=== PATIENT | male | born 1970 | race Caucasian/White ===

== ENCOUNTER 2018-03-06 23:38 | Emergency (ER) | payer OTHER | END 2018-03-07 01:28 | disposition home or self-care (01) | LOC: FTE 23:38 | DX: M25.571 Pain in right ankle and joints of right foot (principal) | CPT/HCPCS: 73610; 73610-RT; 99283-25 ==

== ENCOUNTER 2018-08-04 20:27 | Emergency (ER) | payer OTHER ==
[2018-08-04] MEDS: DIPHTH/TET/ACEL PERTUSS (ADULT) 0.5 ML VIAL IM* (22:01)
== END 2018-08-04 23:43 | disposition home or self-care (01) ==
LOC: FTE 20:27
DX: S61.012A Laceration without foreign body of left thumb without damage to nail, initial encounter (principal); F17.210 Nicotine dependence, cigarettes, uncomplicated; W25.XXXA Contact with sharp glass, initial encounter; Y92.9 Unspecified place or not applicable
CPT/HCPCS: 12001; 73140; 90471; 90715; 99283-25